=== PATIENT | female | born 1985 | race Caucasian/White ===

== ENCOUNTER 2018-06-25 10:11 | Emergency (ER) | payer OTHER ==
[~2018-06-25] VITALS: Ht 162.6 cm; Wt 86.4 kg
[2018-06-25 10:16] VITALS: BP 143/73
[2018-06-25] MEDS ORDERED: AMOXICILLIN 8751 TAB PO (11:32)
[2018-06-25 12:10] VITALS: PULSE 79; TEMP 97.5
== END 2018-06-25 12:10 | disposition home or self-care (01) ==
LOC: COL.ER 10:11
DX: S61.211A Laceration without foreign body of left index finger without damage to nail, initial encounter (principal); F41.9 Anxiety disorder, unspecified; W54.0XXA Bitten by dog, initial encounter; Y92.009 Unspecified place in unspecified non-institutional (private) residence as the place of occurrence of the external cause